=== PATIENT | male | born 1955 | race Caucasian/White ===

== ENCOUNTER 2023-09-14 10:10 | Emergency (ER) | payer MEDICARE, OTHER ==
[~2023-09-14] VITALS: Ht 172.7 cm; Wt 94.3 kg
[2023-09-14 10:47] LABS: BASOPHILS # (AUTO) 0.03 K/uL (0.00-0.20); BASOPHILS % (AUTO) 0.9 % (0.0-5.0); EOSINOPHILS # (AUTO) 0.19 K/uL (0.00-0.70); EOSINOPHILS % (AUTO) 5.4 % (0.0-8.0); HEMATOCRIT 46.2 % (42-54); IMMATURE GRANULOCYTE ABSOLUTE 0.01 K/uL (0-1); LYMPHOCYTES # (AUTO) 0.8 K/uL (1.0-4.8); LYMPHOCYTES % (AUTO) 22.3 % (21.0-51.0); MEAN CORPUSCULAR HEMOGLOBIN 30.4 pg (27.0-33.0); MEAN CORPUSCULAR HGB CONC 34.8 g/dL (32.0-36.0); MEAN CORPUSCULAR VOLUME 87.2 fL (79-99); MONOCYTES # (AUTO) 0.4 K/uL (0.1-1.0); NEUTROPHILS # (AUTO) 2.1 K/uL (1.8-7.7); NEUTROPHILS % (AUTO) 59.1 % (40.0-77.0); PLATELET COUNT (AUTO) 97 K/uL (130-400); RED CELL DISTRIBUTION WIDTH 12.9 % (11.0-15.5); WHITE BLOOD COUNT (AUTO) 3.5 K/uL (4.8-10.8)
[2023-09-14 10:55] LABS: INR 0.99 (0.85-1.15); PROTHROMBIN TIME 11.5 SEC (9.6-11.6)
[2023-09-14 10:56] LABS: CREATININE 0.9 mg/dL (0.5-1.5); POTASSIUM 4.3 mmol/L (3.5-5.1)
[2023-09-14 10:57] LABS: PARTIAL THROMBOPLASTIN TIME 31.1 SEC (26.3-35.5)
[2023-09-14 11:03] LABS: ALBUMIN 3.8 g/dL (3.5-5.0); TOTAL PROTEIN, SERUM 7.6 g/dL (6.0-8.3)
[2023-09-14 11:47] LABS: B-TYPE NATRIURETIC PEPTIDE 52 pg/mL (0-100)
[2023-09-14] MEDS: KETOROLAC 15MG/ML VIAL (15MG/ML) IV ONE (14:57)
[2023-09-14] MEDS ORDERED: NAPR-1180 PO (16:07)
[2023-09-14 16:36] VITALS: BP 136/84; PULSE 61; RESP 18; O2SAT 98
== END 2023-09-14 16:36 | disposition home or self-care (01) ==
LOC: EDH 10:10
DX: R20.2 Paresthesia of skin (principal); M79.642 Pain in left hand; M79.605 Pain in left leg; G89.29 Other chronic pain; M54.50 Low back pain, unspecified; Z98.890 Other specified postprocedural states; Z88.5 Allergy status to narcotic agent; Z88.8 Allergy status to other drugs, medicaments and biological substances
CPT/HCPCS: 99285; 70551; 70450; 96374; 80053; 83880; 85025; 85610; 85730; 82948; 36415; 72125; 72141; 93005; J1885